=== PATIENT | male | born 1940 | race Caucasian/White ===

== ENCOUNTER 2021-03-07 22:48 | Inpatient (IN) | payer OTHER ==
[~2021-03-07] VITALS: Ht 175.3 cm; Wt 64.0 kg
[2021-03-07] MEDS ORDERED: MONT10TA33 PO (23:20)
[2021-03-07] MEDS ORDERED: OMEP20TA5 PO (23:20)
[2021-03-07] MEDS ORDERED: LOSA100T31 PO (23:20)
[2021-03-07] MEDS ORDERED: ERGOCALCIFEROL (23:20)
[2021-03-07] MEDS ORDERED: PRAV20TA4 PO (23:20)
[2021-03-07] MEDS ORDERED: ALPR0.255 PO (23:20)
[2021-03-07] MEDS ORDERED: SERT50TA PO (23:20)
[2021-03-07] MEDS ORDERED: MIRA25TA PO (23:20)
[2021-03-07] MEDS ORDERED: FAMO20TA8 PO (23:20)
--- NOTE | 2021-03-08 00:53 | NUR ---
Gave report to Gauri
[2021-03-08 01:30] VITALS: BP 166/75
[2021-03-08] MEDS ORDERED: ACETAMINOPHEN 325 MG TABLET PO PRN (01:30)
[2021-03-08] MEDS ORDERED: MAGNESIUM HYDROXIDE 30 ML LIQUID UDC PO PRN (01:30)
[2021-03-08] MEDS ORDERED: MAG HYDROX/AL HYDROX/SIMETH 30 ML LIQUID UDC PO PRN (01:30)
--- NOTE | 2021-03-08 01:30 | NUR ---
80 y.o male brought to [facility] Third floor as GPS overflow from ER under the care of Dr. Manuel/Dr. Morris. Pt admitted on a 5150 for DTS. According to the hold Pt made statements that he wanted to kill himself with a gun. Advisement and Patients right handbook given. Upon face to face assessment.Pt appears to reflect what is on the hold. Pt is alert and orientedx3 and cooperative with assessment. Pt currently doesn't have thoughts of hurting himself. Pt agreed to contract for safety. He is stating that he feels depressed and anxious because he lives alone and her daughter wants him to move to a snf. Pt mood is depressed and anxious.Pt states that he is willing to accept treatment.Skin assessment done and pictures put on his chart. Pt oriented to the unit and his room, educated on unit rules and expectations, safety emphasized.Belongings of the pt note. One to one sitter for safety. Pt in no acute distress, Will continue to monitor.
[2021-03-08 04:00] VITALS: BP 175/82
--- NOTE | 2021-03-08 06:09 | NUR ---
PT IN NO ACUTE DISTRESS. DR Jada RIVAS ORDERED TO HOLD PROTONIX SINCE PT HAVE PEPCID. SAFETY AND COMFORT PROVIDED. WILL ENDORSE TO INCOMING NURSE FOR CONTINUITY OF CARE.
--- NOTE | 2021-03-08 06:20 | NUR ---
PT SLEPT 2 HOURS AND 45 MINUTES. PT COOPERATIVE WITH CARE. SITTER AT BEDSIDE FOR SAFETY. WILL ENDORSE TO INCOMING NURSE.
[2021-03-08 07:00] LABS: BILIRUBIN,TOTAL 0.5 mg/dL (0.2-1.0); POTASSIUM 4.2 mmol/L (3.5-5.1); TOTAL PROTEIN, SERUM 5.9 g/dL (6.4-8.2)
[2021-03-08] MEDS ORDERED: PANTOPRAZOLE SODIUM 40 MG TABLET.DR PO SCH (07:00)
[2021-03-08 07:46] VITALS: BP 164/70
[2021-03-08] MEDS: LOSARTAN POTASSIUM 50 MG TABLET PO SCH (08:21)
[2021-03-08] MEDS: FAMOTIDINE 20 MG TABLET PO SCH ×2 (08:21→20:20)
[2021-03-08] MEDS ORDERED: MONTELUKAST SODIUM 10 MG TABLET PO SCH (09:00)
[2021-03-08] MEDS ORDERED: ERGOCALCIFEROL 50,000 UNIT CAPSULE PO SCH ×2 (09:00)
[2021-03-08] MEDS: OXYBUTYNIN XL 5 MG TABSR PO SCH (09:21)
--- NOTE | 2021-03-08 10:28 | NUR ---
BRAD Initial Discharge Plan: Patient currently resides at [address] [place] [address]; ([phone]). Patient would want to return back home upon discharge. This SW contacted patient's daughter Sydney ([phone]) to discuss treatment and discharge plan. SW left a voicemail. This SW will work with the MD, Family, and pt to help coordinate proper discharge plan.
--- NOTE | 2021-03-08 10:29 | NUR ---
Firearms Report: Insurance Verification Representative completed and submitted a [employer] firearms report for 5150 grave disability certification. A copy of report has been placed in patient chart.
--- NOTE | 2021-03-08 10:29 | NUR ---
Substance Abuse Intervention: Patient was provided with a brief substance abuse intervention and referred to [facility] ([phone]), [facility] ([phone]), and [facility] ([phone]) for cigarettes.
--- NOTE | 2021-03-08 11:36 | NUR ---
UR NOTE: Auth# [id number] obtained from Lorrie Monreal C.M. with [facility] for out of area pts. 3 days approved with GERRY/LARISA to be faxed to [facility] with request for additional clinical for continuation of stay. No Program Strategist. has been assigned at this time. For follow & status direct line to dept [phone] Option 3. FAX# Review will be due March 10.
--- NOTE | 2021-03-08 13:39 | NUR ---
SW Family Contact: This SW spoke with patient's family Sydney ([phone]) and discussed treatment and discharge plan. Sydney reported that patient has been depressed after his father . She reported that she is the DPOA and will fax this SW the documents. Sydney reported that she would want pt to transition to a nursing facility called [facility] ([phone]) and to be in contact with Nicole the manager art. This SW will work with the family and facility.
--- NOTE | 2021-03-08 13:43 | NUR ---
SNF Contact: Per patient's daughter Sydney's request this SW contacted nursing facility called [facility] ([phone]) and to be in contact with Nicole the parking garage manager to coordinate. This SW left Nicole a voicemail.
--- NOTE | 2021-03-08 13:45 | NUR ---
SW Note: Per patient's record, Agusto ALVARADO removed patient's guns from the house ([phone]). Daughter Sydney ([phone]) confirmed that the guns were removed.
--- NOTE | 2021-03-08 14:11 | NUR ---
SNF Contact: This SW received a call from Tran from facility called [facility] who stated that patient has been their resident and that he has been in and out of the facility. Tran stated upon dc they can take him and would want clinicals.
--- NOTE | 2021-03-08 15:16 | NUR ---
Individual Therapy: agricultural service worker met with patient for brief counseling to help address patient's presenting problem for SI. Patient currently denies SI. Patient appears withdrawn and depressed. Patient stated he was depressed at home because he "had to move certain things in his house". Patient stated that he is sad because his father committed suicide years ago and it has effected him. This SW actively listened and provided support.
[2021-03-08 16:00] VITALS: BP 116/52
--- NOTE | 2021-03-08 17:57 | NUR ---
TRANSFER NOTE: Patient transferred to MHU from [facility] accompanied by nursing staff. Patient oriented to MHU rules and policies, he was oriented to his assigned room. Patient provided with patient's rights handbook. Patient's belongings and valuables inventoried with patient, valuables placed in safe and contraband placed in locker. Patient is anxious, irritable, and angry that he can't have his cell phone, but patient was provided with education about unit rules and his safety was reinforced. Patient denies SI/HI, denies AH/VH.
[2021-03-08] MEDS: MONTELUKAST SODIUM 10 MG TABLET PO SCH (18:00)
--- NOTE | 2021-03-08 20:00 | NUR ---
Received a phone call from pharmacy stating that it was noted that patient is allergic to Lexapro. Per previous medical records: Lexapro unspecified reaction, lethargy. Per patient, he stated, "I don't remember been allergic to lexapro, only sulfas". Dr Manuel was notified and he stated to administer Lexapro as patient, and medical records, stated not an allergic reaction. Pharmacy was also notified. Will administer Lexapro and will monitor for lethargy. Will continue to monitor.
[2021-03-08 20:12] VITALS: BP 102/60
[2021-03-08] MEDS: ATORVASTATIN 10 MG TABLET PO SCH (20:20)
[2021-03-08] MEDS: ESCITALOPRAM OXALATE 10 MG TABLET PO SCH (20:20)
[2021-03-08] MEDS: ALPRAZOLAM 0.25 MG TABLET PO PRN (21:42)
[2021-03-09 07:30] VITALS: BP 105/60
[2021-03-09] MEDS: FAMOTIDINE 20 MG TABLET PO SCH ×2 (08:47→20:05)
[2021-03-09] MEDS: LOSARTAN POTASSIUM 50 MG TABLET PO SCH (08:52)
--- NOTE | 2021-03-09 09:16 | NUR ---
SNF Contact: This SW contacted nursing facility called [facility] ([phone]) and left a voicemail to Tran that this SW faxed patient's clinicals at ([phone]).
[2021-03-09] MEDS: OXYBUTYNIN XL 5 MG TABSR PO SCH (11:27)
[2021-03-09] MEDS: Z GUARD REMEDY PASTE 57 GM TUBE TOP SCH ×2 (11:28→20:06)
[2021-03-09 16:00] VITALS: BP 112/57
[2021-03-09] MEDS: MONTELUKAST SODIUM 10 MG TABLET PO SCH (18:17)
[2021-03-09 19:56] VITALS: BP 126/51
[2021-03-09] MEDS: ESCITALOPRAM OXALATE 10 MG TABLET PO SCH (20:05)
[2021-03-09] MEDS: ATORVASTATIN 10 MG TABLET PO SCH (20:05)
[2021-03-09] MEDS: ALPRAZOLAM 0.25 MG TABLET PO PRN (21:08)
[2021-03-10 07:30] VITALS: BP 102/63
[2021-03-10] MEDS: LOSARTAN POTASSIUM 50 MG TABLET PO SCH (09:00)
[2021-03-10] MEDS: FAMOTIDINE 20 MG TABLET PO SCH ×2 (09:07→20:20)
[2021-03-10] MEDS: Z GUARD REMEDY PASTE 57 GM TUBE TOP SCH ×2 (09:07→20:25)
[2021-03-10] MEDS: OXYBUTYNIN XL 5 MG TABSR PO SCH (09:08)
--- NOTE | 2021-03-10 11:19 | NUR ---
SW Family Contact: This SW spoke with patient's family Sydney ([phone]) who sent in DPOA document. This SW placed it in pt's chart.
--- NOTE | 2021-03-10 12:49 | NUR ---
UR Note: This SW contacted [employer] ([phone]) to find out who pt's piano case and bench assembler is. This SW spoke with Tang who stated that pt does not have a piano case and bench assembler at the moment and the piano case and bench assembler will contact this SW. This SW notified that this insurance underwriter will be in the office until 4:30PM and does not work on weekends. Tang stated if piano case and bench assembler doesn't reach out this insurance underwriter will not get dinged for not providing clinicals. She stated the piano case and bench assembler will reach this SW either 03/10 or 03/13. Auth#[id number].
--- NOTE | 2021-03-10 14:19 | NUR ---
UR NOTE: Per intake department, [facility], , Auth: [id number], Approval Days: 03/10- 03/13, Preschool Teacher'S Assistant: Sommer Lindsey - [phone], Concurrent Review Due on 03/13.
--- NOTE | 2021-03-10 14:20 | NUR ---
SW Family Contact: This SW spoke with patient's family Sydney ([phone]) and discussed treatment plan and discharge plan. Daughter would want treatment team to do urine test for pt. This SW notified charge nurse, Gisella.
--- NOTE | 2021-03-10 15:18 | NUR ---
Individual Therapy: environmental services worker met with patient for brief counseling to help address patient's presenting problem for SI. Patient currently denies SI. Patient stated that he is feeling less depressed and realized that he has a strong support system. He reported that his daughter has been very helpful. SW actively listened and provided emotional support.
[2021-03-10 17:12] VITALS: BP 130/57
[2021-03-10] MEDS: MONTELUKAST SODIUM 10 MG TABLET PO SCH (18:04)
[2021-03-10] MEDS: ATORVASTATIN 10 MG TABLET PO SCH (20:20)
[2021-03-10] MEDS: ESCITALOPRAM OXALATE 10 MG TABLET PO SCH (20:21)
[2021-03-10 20:46] VITALS: BP 129/55
--- NOTE | 2021-03-10 20:47 | NUR ---
patient c/o pain 8/10 pain level. Tylenol 650 mg po offered for pain but patient refused it. patient stated i want xanax po not tylenol. education provided tylenol is for pain. continue plan of care.
[2021-03-10] MEDS: ALPRAZOLAM 0.25 MG TABLET PO PRN (20:52)
--- NOTE | 2021-03-10 20:53 | NUR ---
GPS: patient c/o insomnia ,xanax 0.25 mg po given
--- NOTE | 2021-03-11 05:56 | NUR ---
GPS: Remain calm and cooperative with meds and care. no agitation noted at this time. resting comfortably in bed. continue plan of care.
--- NOTE | 2021-03-11 06:11 | NUR ---
slept 7.45 hrs through the night.
[2021-03-11 07:30] VITALS: BP 143/51
[2021-03-11] MEDS: OXYBUTYNIN XL 5 MG TABSR PO SCH (08:58)
[2021-03-11] MEDS: FAMOTIDINE 20 MG TABLET PO SCH ×2 (08:59→20:10)
[2021-03-11] MEDS: LOSARTAN POTASSIUM 50 MG TABLET PO SCH (08:59)
[2021-03-11] MEDS: Z GUARD REMEDY PASTE 57 GM TUBE TOP SCH ×2 (08:59→20:10)
[2021-03-11 16:00] VITALS: BP 124/77
[2021-03-11] MEDS: ENSURE ENLIVE (VAN) 240 ML LIQUID PO SCH (17:39)
[2021-03-11] MEDS: MONTELUKAST SODIUM 10 MG TABLET PO SCH (17:42)
--- NOTE | 2021-03-11 18:30 | NUR ---
Gps/Emergency Dispatcher- Stayed up in his chair most of the day, assisted back to bed to rest . Daughter was in to visit and brought new clothes (shirts and pants ) Patient was toileted, incontinent of stools this pm, assisted with his hygiene. Bilateral hearing aids on
[2021-03-11 20:00] VITALS: BP 136/62
[2021-03-11] MEDS: ATORVASTATIN 10 MG TABLET PO SCH (20:10)
[2021-03-11] MEDS: ESCITALOPRAM OXALATE 10 MG TABLET PO SCH (20:10)
[2021-03-11] MEDS: ALPRAZOLAM 0.25 MG TABLET PO PRN (21:29)
[2021-03-12 08:26] VITALS: BP 113/71
[2021-03-12] MEDS: FAMOTIDINE 20 MG TABLET PO SCH ×2 (08:41→20:09)
[2021-03-12] MEDS: OXYBUTYNIN XL 5 MG TABSR PO SCH (08:41)
[2021-03-12] MEDS: LOSARTAN POTASSIUM 50 MG TABLET PO SCH (08:42)
[2021-03-12] MEDS: Z GUARD REMEDY PASTE 57 GM TUBE TOP SCH ×2 (08:43→20:10)
[2021-03-12] MEDS: ENSURE ENLIVE (VAN) 240 ML LIQUID PO SCH ×2 (08:43→17:00)
[2021-03-12] MEDS: MONTELUKAST SODIUM 10 MG TABLET PO SCH (17:02)
[2021-03-12] MEDS: ATORVASTATIN 10 MG TABLET PO SCH (20:09)
[2021-03-12] MEDS: ESCITALOPRAM OXALATE 10 MG TABLET PO SCH (20:09)
[2021-03-12 20:14] VITALS: BP 112/68
--- NOTE | 2021-03-12 21:03 | NUR ---
Received pt sleeping in bed, aroused easily to verbal stimuli. No acute distress noted. Denies pain/ discomfort. Denies SI. Due meds given as ordered. Safety measures maintained. Will continue to monitor.
[2021-03-13 07:30] VITALS: BP 153/56
[2021-03-13] MEDS: OXYBUTYNIN XL 5 MG TABSR PO SCH (08:59)
[2021-03-13] MEDS: LOSARTAN POTASSIUM 50 MG TABLET PO SCH (08:59)
[2021-03-13] MEDS: FAMOTIDINE 20 MG TABLET PO SCH ×2 (08:59→20:21)
[2021-03-13] MEDS: ENSURE ENLIVE (VAN) 240 ML LIQUID PO SCH ×2 (09:00→17:12)
[2021-03-13] MEDS: Z GUARD REMEDY PASTE 57 GM TUBE TOP SCH ×2 (09:00→20:22)
--- NOTE | 2021-03-13 10:43 | NUR ---
Court Hearing: Patient's court hearing was today for 5250 and it was upheld for GD.
--- NOTE | 2021-03-13 11:32 | NUR ---
UR NOTE: Per intake department, [facility], , Auth: [id number], Approval Days: 03/10- 03/14, Electronic Engraver: Melody ([phone]) ext: [phone] and stated concurrent review due 03/14 with Arsen ([phone]) ext: [phone].
--- NOTE | 2021-03-13 11:39 | NUR ---
SNF Contact: This SW contacted nursing facility called [facility] ([phone]) and spoke with Tran and stated pt is ready for dc 03/15.
--- NOTE | 2021-03-13 11:51 | NUR ---
BRAD advised this public relations writer that UA needs to be done for patient. Orders placed for urinalysis for patient.
--- NOTE | 2021-03-13 11:51 | NUR ---
SW Note: This SW requested UA urine from charge nurse Fani.
--- NOTE | 2021-03-13 12:19 | NUR ---
SW Family Contact: This SW spoke with patient's DPOA daughter Sydney ([phone]) who stated if this SW can speak with pt in regards to family deciding on selling his house and that he will be transferring to [facility]. This SW stated that this senior writer will speak with pt.
--- NOTE | 2021-03-13 12:20 | NUR ---
SW Note: This SW spoke with pt in regards to family selling his house and that he will be transferring to a nursing facility called [facility]. Pt stated that he is aware and agreeable with this transfer.
[2021-03-13 15:04] VITALS: BP 111/48
--- NOTE | 2021-03-13 15:11 | NUR ---
UR NOTE: Per intake department, [facility], , Welt Rougher: Melody ([phone]) ext: [phone] who was unable to authorize for transportation.
--- NOTE | 2021-03-13 15:12 | NUR ---
[employer] Transportation: This SW contacted [employer] ([phone]) and scheduled arrangement for 03/15 between 1PM-1:30pm filler picker, scheduled through [employer]. This SW advised that family or [facility] will contact on 03/14 to make payment.
--- NOTE | 2021-03-13 15:13 | NUR ---
Individual Therapy: spinning room worker met with patient for brief counseling to help address patient's presenting problem for SI. Patient currently denies SI. Pt expressed that he has been feeling well and that he is excited to go to [facility]. Pt stated that he no longer feels depressed. He stated that he is excited about this new journey at the facility. SW actively listened and provided emotional support.
--- NOTE | 2021-03-13 15:17 | NUR ---
SW Family Contact: This SW spoke with patient's DPOA daughter Sydney ([phone]) and stated [employer] will charge $723.00 for transportation and she was agreeable with payment.
[2021-03-13] MEDS: MONTELUKAST SODIUM 10 MG TABLET PO SCH (17:12)
--- NOTE | 2021-03-13 17:51 | NUR ---
patient up in his W/C able to wheel self in vera way, in the activity room. CHEROKEE wears bilateral hearing aid , compliant with all medication.
[2021-03-13] MEDS: ATORVASTATIN 10 MG TABLET PO SCH (20:21)
[2021-03-13] MEDS: ESCITALOPRAM OXALATE 10 MG TABLET PO SCH (20:21)
[2021-03-13 20:24] VITALS: BP 136/52
[2021-03-13] MEDS: ALPRAZOLAM 0.25 MG TABLET PO PRN (20:27)
--- NOTE | 2021-03-14 06:41 | NUR ---
Pt comfortable in bed, no s/s of distress noted. Denies pain at this time. Encouraged to void, pt refused to get up and void at this time. Urine sample still to be collected. Will endorse accordingly. Frequent checks done. Safety precautions in place.
[2021-03-14 08:30] VITALS: BP 157/57
[2021-03-14] MEDS: FAMOTIDINE 20 MG TABLET PO SCH ×2 (08:39→20:19)
[2021-03-14] MEDS: OXYBUTYNIN XL 5 MG TABSR PO SCH (08:39)
[2021-03-14] MEDS: LOSARTAN POTASSIUM 50 MG TABLET PO SCH (08:40)
[2021-03-14] MEDS: Z GUARD REMEDY PASTE 57 GM TUBE TOP SCH ×2 (08:44→20:27)
[2021-03-14] MEDS: ENSURE ENLIVE (VAN) 240 ML LIQUID PO SCH ×4 (08:44→17:01)
--- NOTE | 2021-03-14 09:39 | NUR ---
Maycol Ventura Machined Parts Metal Sprayer Contact: This SW has been working with case supervisor Adrianne ([phone]) and stated that they will approve patient's transportation and will pay it through [employer]. This SW is waiting for Arelis who will authorize.
--- NOTE | 2021-03-14 09:46 | NUR ---
DUPLICATE ORDER PATIENT ALREADY HAD ENSURE THIS AM WITH [employer]
--- NOTE | 2021-03-14 10:12 | NUR ---
Maycol Ventura Imager Contact: This SW received a call from Arelis transplant case manager ([phone]) who stated that she will be paying for pt's transportation. This SW left a detailed voicemail to call [employer] ([phone]) and to make the payment and to speak to farm owner operator Aniyah.
--- NOTE | 2021-03-14 10:13 | NUR ---
[facility]: This SW contacted [facility] [employer] ([phone]) and spoke with Aniyah and stated Arelis from [facility] ([phone]) will make the payment.
--- NOTE | 2021-03-14 10:14 | NUR ---
UR NOTE: This SW contacted clinical case manager: Arsen ([phone]) ext [phone] to schedule concurrent review for today. This SW left a voicemail. [employer], ,
--- NOTE | 2021-03-14 10:47 | NUR ---
Maycol Ventura Representative Phlebotomy Services Contact: This SW received a phone call from Arelis ([phone]) who stated that payment was made through [employer] and spoke with Aniyah.
--- NOTE | 2021-03-14 10:49 | NUR ---
[employer]: This SW contacted [employer] ([phone]) and spoke with Aniyah who stated Arelis from [facility] ([phone]) made the payment.
--- NOTE | 2021-03-14 13:03 | NUR ---
UR NOTE: This SW contacted corrections caseworker: Arsen ([phone]) ext [phone] authorized patient's stay at the hospital for 03/15 and will require clinical review if pt is not discharged by 03/15.
--- NOTE | 2021-03-14 14:00 | NUR ---
IN THE D/ROOM EATING LUNCH DENIES SI STATED HEMANT NOT WISH HE WAS ANYMORE COMPLIANT WITH MEDICATIONS AND CARE WILL CONTINUE TO PROVIDE SAFE AND THERAPEUTIC ENVIRONMENT AT ALL TIMES.
[2021-03-14 15:23] VITALS: BP 117/49
[2021-03-14] MEDS: MONTELUKAST SODIUM 10 MG TABLET PO SCH (17:03)
--- NOTE | 2021-03-14 18:31 | NUR ---
Patient is resting in wheelchair in the lounge. No sign of distress noted. Medications given as ordered. Safety measures are in place. Will endorse to oncoming shift.
[2021-03-14] MEDS: ATORVASTATIN 10 MG TABLET PO SCH (20:19)
[2021-03-14] MEDS: ESCITALOPRAM OXALATE 10 MG TABLET PO SCH (20:19)
[2021-03-14 20:25] VITALS: BP 101/47
[2021-03-15 07:30] VITALS: BP 115/64
--- NOTE | 2021-03-15 08:28 | NUR ---
Discharge Note: Patient will be discharged to [facility] [address] [place] [address]; ([phone]). [employer] transportation will berry picker patient around 1-1:30PM. Patients daughter ANDRE Grimes ([phone]) is aware and agreeable with discharge. Patient is alert and oriented x2 and is unable to provide for care but is willing to accept going to the nursing facility. Patient denies suicidal or homicidal ideation. Patient denies visual/auditory hallucinations. Patient will follow up with (Sand Cutting Machine Operator) Dr. Souza and (Psychiatrist) Dr. Rascon at the facility. Patient was provided referrals to the following substance abuse programs for substance abuse: [facility] ([phone]); [facility] [address] [place] [address] ([phone]); [address] [address] [place] [address] ([phone]); [facility] ([phone]); [facility] ([phone]); [facility] ([phone]); [facility] ([phone]) for smoking. Patient presented with euthymic mood and congruent affect.
[2021-03-15] MEDS: ENSURE ENLIVE (VAN) 240 ML LIQUID PO SCH ×2 (09:00→13:40)
--- NOTE | 2021-03-15 09:09 | NUR ---
UR NOTE: This SW contacted case technician: Arsen ([phone]) ext [phone] and notified that pt will be discharged today. This SW left discharge summary on his voicemail.
[2021-03-15 09:44] VITALS: BP 115/64
[2021-03-15] MEDS: LOSARTAN POTASSIUM 50 MG TABLET PO SCH (09:44)
[2021-03-15] MEDS: FAMOTIDINE 20 MG TABLET PO SCH (09:44)
[2021-03-15] MEDS: OXYBUTYNIN XL 5 MG TABSR PO SCH (09:47)
[2021-03-15] MEDS: Z GUARD REMEDY PASTE 57 GM TUBE TOP SCH (09:55)
--- NOTE | 2021-03-15 13:15 | NUR ---
pt is being discharged to [facility]. Report given to SKYLER Pettit. Pt's hold is discontinued. VS are stable. Pt is calm, denies s.i. willing to go. Transportation is provided by [facility].
== END 2021-03-15 13:50 | DRG 885 ==
LOC: ER 22:51 → GPSOV3 23:07 → GPS 03-08 16:21
PROVIDERS: ADMIT Psychiatry & Neurology Psychiatry; ATTEND Nurse Practitioner Acute Care
DX: F33.2 Major depressive disorder, recurrent severe without psychotic features (principal); E44.0 Moderate protein-calorie malnutrition; F23 Brief psychotic disorder; E78.5 Hyperlipidemia, unspecified; Z90.81 Acquired absence of spleen; K21.9 Gastro-esophageal reflux disease without esophagitis; H91.90 Unspecified hearing loss, unspecified ear; M62.84 Sarcopenia; F40.240 Claustrophobia; I13.10 Hypertensive heart and chronic kidney disease without heart failure, with stage 1 through stage 4 chronic kidney disease, or unspecified chronic kidney disease; M19.90 Unspecified osteoarthritis, unspecified site; N40.0 Benign prostatic hyperplasia without lower urinary tract symptoms; Z96.652 Presence of left artificial knee joint; Z85.46 Personal history of malignant neoplasm of prostate; Z88.0 Allergy status to penicillin; Z88.2 Allergy status to sulfonamides; E88.09 Other disorders of plasma-protein metabolism, not elsewhere classified; F41.9 Anxiety disorder, unspecified; G47.00 Insomnia, unspecified; Z68.20 Body mass index [BMI] 20.0-20.9, adult; N28.9 Disorder of kidney and ureter, unspecified; Z20.822 Contact with and (suspected) exposure to COVID-19
CPT/HCPCS: 36415; A4663